=== PATIENT | female | born 1930 | race Caucasian/White ===

== ENCOUNTER 2017-07-25 10:27 | Observation (INO) | payer OTHER ==
[~2017-07-25] VITALS: Ht 167.6 cm; Wt 71.4 kg
[~2017-07-25 10:27] MED LIST: CLOP1TAB15 PO; LISI-729 PO; METF-384 PO; METO25TA3 PO; MULT-190 PO; SITA100T3 PO
[2017-07-25 16:27] VITALS: BP 164/73; PULSE 86; TEMP 36.8; O2SAT 94
[2017-07-25] MEDS ORDERED: MAGNESIUM HYDROXIDE SUSP 30 ML UDC PO PRN (17:15)
[2017-07-25] MEDS ORDERED: ALUMINUM/MAGNESIUM/SIMETH (MAALOX MAX) 30 ML UDC PO PRN (17:15)
[2017-07-25] MEDS ORDERED: ACETAMINOPHEN 325 MG TAB PO PRN (17:15)
[2017-07-25] MEDS ORDERED: ONDANSETRON INJ 2 MG/ML 2 ML VIAL IV PRN (17:15)
[2017-07-25] MEDS ORDERED: POLYETHYLENE (MIRALAX) 17 GM PACK PO PRN (17:15)
--- NOTE | 2017-07-25 17:18 | History and Physical ---
History & Physical Date & Time of Service: Jul 25, 2017 at 17:18 Chief Complaint: Syncope With Collapse Primary Care Physician: Marshall Mauricio M.D. History of Present Illness Source: patient, family Ms. 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 HPI obtained from patient and family at bedside. Patient sustained a fall approx. 2 weeks ago where she fell backwards and broke her R humerus. She states she doesn't recall lightheadedness or dizziness prior to the fall, it "just happened". She states she had a full work-up then for syncope and no findings were found. After her stay there, her daughter states that she seemed rather deconditioned and was struggling to ambulate mostly because of pain in her R arm she was struggling to use a walker or an assistive device. Daughter states prior to this fx she was ambulating find and normally doesn't use assistive devices. She sustained another fall approx. one week ago and reports no injury and again the patient stated it "just happened" but denies precipitating factors. They report they did a work-up again for syncope without findings. She was discharged to [facility] to get rehab there. This appears to be an assisted living facility and she was just evaluated to have PT and OT services started but she has only been at [facility] x 1 week and this has not started. Family reports acute rehab or SNF was not discussed prior to D/C from [facility] for more consistent rehab. Patient states she was feeling her normal self today and she got up and her toe hit the end of a table and she fell on her R side and was found by her bed. Patient reports she did not pass out or feel lightheaded or dizzy. States she is not familiar with her room since she has only been there x 1 week and is blind. She was taken to [facility] and per nursing signout from [facility] to nursing staff here (as no records Hospital records sent other than images). "She has been worked up for syncope x 2 without findings". They requested transfer and she sat in the ED in [facility] x approx. 7 hours. Family is not sure what all work-up they did but states a director client did see her when she was there one day. For the humerus fx the plan is conservative management with sling and PT/OT services. Per nursing report, [facility] states she had orthostasis with systolic BP of 140 supine which dropped to 100 systolically when sitting but did not see this in records as only labs and images sent. Incidentally, family reports they noticed vaginal bleeding x 2 days. Patient denies FMHx of gynecological Eloy and has her ovaries, uterus, and cervix. Did discuss differential and she states that if it would be cancer she would not pursue aggressive measures. She does report irritation from briefs and on visualization there is no blood but mildly erythematous labia. Nursing staff here noticed scant blood on brief. Imaging and labs from [facility] reviewed: CT Lumbar and Cervical without acute findings; CT Head no acute findings with stable chronic and post-operative findings per previous report? (will need to ask about this). With CT chest showing 22 mm mass-like opacity in LLL with recommendations for repeat imaging. CT showing a stable comminuted fx of R proximal humerus without change from initial image. Labs reveal WBC 6.5, Hgb/Hct 9.8/29.7, and platelets 451. Electrolytes WNL but BUN/Cr 34/1.6 with anion gap 14. Troponin negative. TSH 1.04. BNP 19. UA with 3+ leuks and 2+ blood with many bacteria. Again without records do not know what was given during her 7 hours in the ED at [facility] and family isn't sure. Past Medical/Surgical History 1. T2DM (managed off medications) 2. TIA (2011) 3. L Carotid Stenosis S/P Endarterectomy 4. Blindness x 6 months 2/2 Macular Degeneration 5. Recent R Humerus Fx Family History Patient reports no known family medical history. Social History Smoking Status: Never Smoker Smokeless Tobacco Use: No Alcohol Use: none Drug Use: none Housing status: assisted living Allergies Coded Allergies: No Known Allergies (Unverified , 12/16/14) Home Medications Scheduled Ciprofloxacin (Ciprofloxacin HCl), 500 MG PO BID Citalopram Hydrobromide (Citalopram Hydrobromide), 1 TAB PO DAILY Clopidogrel (Plavix), 75 MG PO QAM Docusate Sodium (Dok), 100 MG PO BID Docusate Sodium (Dok), 100 MG PO HS Dorzolamide Hcl-Timolol Maleat (Cosopt Oph), 1 DROPS OPL DAILY Ferrous Sulfate (Ferrous Sulfate), 325 MG PO BID Levetiracetam (Keppra), 500 MG PO DAILY Lisinopril (Zestril), 5 MG PO QAM Magnesium Oxide (Magnesium-Oxide), 400 MG PO DAILY Metoprolol Succinate (Toprol Xl), 25 MG PO QAM Multiple Vitamins W/ Minerals (I-Bakari Protect), 2 TABS PO DAILY Ocuvite Preservision (Ocuvite Preservision), 1 TAB PO BID Simvastatin (Zocor), 1 TAB PO HS Timolol Maleate (Ophth) (Timoptic), 1 DROPS OP DAILY Travoprost (Travatan Z), 1 DROPS OP DAILY Scheduled PRN Ondansetron (Ondansetron HCl), 1 TAB PO Q6H PRN for Nausea Tramadol HCl (Tramadol HCl), 100 MG PO Q6H PRN for Pain Miscellaneous Medications Famotidine (Pepcid), 20 MG PO Review of Systems General/Constitutional: Denies fever/chills, fatigue ENT: + blindness x 6 months; Denies nasal drainage, hearing loss, sore throat, trouble swallowing Cardiovascular: Denies chest pain, palpitations, edema Respiratory: Denies cough, sputum, SOB, wheezing, orthopnea GI: Denies nausea, vomiting, abdominal pain, constipation, diarrhea, melena/ hematochezia /Gyne: + Vaginal irritation + vaginal bleeding - reported; Denies dysuria Musculoskeletal: + R shoulder pain; Denies swelling Neurologic: Denies dizziness/lightheadedness, numbness/tingling Hematologic/Lymphatic: Denies bleeding/clotting abnormalities Skin: Denies rash Physical Exam Vital Signs Date Time Temp Pulse Resp B/P (MAP) Pulse Ox O2 Delivery O2 Flow Rate FiO2 07/25/17 16:27 36.8 86 18 164/73 (103) 94 Room Air General Appearance: WDWN in NAD who is A&O x 3 HEENT: Head is normocephalic/atraumatic; Mildly AKUTAN; Mucous membranes moist; Pharynx negative for exudate/lesions Neck: Supple; Trachea midline; Neg JVD Heart: RRR with no M/G/R Lungs: CTA in all lung bruce bilaterally; Respirations unlabored; Neg accessory muscle use Abdomen: Soft, non-tender, non-distended; Positive BS x 4 quadrants Extremities: Capillary refill < 2 seconds; Neg cyanosis or edema; limited ROM in RUE Neurological: Speech clear; Neg focal neurologic deficits Psychiatric: Appropriate mood/affect Skin: Normal Color; Warm/Dry Diagnostics Laboratory Results Results Past 24 Hours Test 07/25/17 17:12 Range/Units Impression Assessment and Plan Ms. 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 Mechanical Fall with Possible Previous Syncopal Falls? - [facility] reporting they have worked her up for syncope x 2 with no findings and direct admitted her - however patient continues to state this was mechanical in nature as she tripped, she is in a new unfamiliar environment x 1 week, she has a broken humerus, deconditioned from recent hospitalization, and is blind - Monitor on telemetry for rhythm monitoring and obtain troponin, CK, CMP - given fall and elevated Cr on [facility] labs - R/O element of rhabdo - Request records from [facility] for their workup - Reporting orthostatic BP in [facility] and will check them here - Obtain UA to R/O infection as contributing - She follows with a director client for her carotid stenosis but denies arrhythmia or heart history Orthostasis: - Check orthostatic here and hydrate with NSS at 80 mL/hr - unknown if she has any underlying CHF and will monitor for any signs of fluid overload - Hold Lisinopril and Toprol XL R Humerus Fx x 2 weeks: - Plan for conservative management with sling and PT/OT - Tramadol for pain - family states this medication does not seem to cause sedation and is tolerating it well Possible VIVI: - Unknown baseline but will hydrate and monitor 22 mm LLL Mass: - Given size suggestive of CA - will consult Pulm for recommendations and input - do not suspect patient will pursue aggressive treatment but family expressed concern for this T2DM (Managemed off Meds): - Continue to monitor and SSI if necessary Vaginal Bleeding? - External genitalia with mild erythema of labia but no visualization of blood at the introitus - will continue Plavix at this time - Discussed differential and patient states if this is worst case scenario she would not want aggressive treatment - denies FHMx of Gyne Eloy - still has Uterus and Cervix - Desenex powder Seizure Disorder: STABLE - Keppra 500 mg daily - CT Head with post-operative changes? Will need to ask about this Carotid Stenosis S/P L Endarerectomy: - Plavix 75 mg daily - Family reports she follows with cardiology for this and she has had unremarkable dopplers since procedure Code Status: DO NOT RESUSCITATE Disposition: - PT/OT evaluations - should consider SNF as family reports rehab wasn't discussed and she went to [facility] to get intermittent PT but hasn't started Resident Physician Supervision Note: I was present with MARIBEL Simeon during the history and exam. I discussed the case with the PA and agree with the findings and plan as documented in the note. Any exceptions or clarifications are listed here: 87 y/o F Hx DM II, TIA, seizures, visually impaired - recent frequent falls due to blindness. Pt presents due to frequent falls as a direct transfer. We were told by [facility] that she was having syncopal episodes, however, she denies this as does family. She has a new lung mass that has not been worked up and may be having some vaginal bleeding. OE AAO x 2 S1,2 R CTAB NT, ND No CCE No motor deficits P: The pt may not want an extensive workup reg her lung mass and bleeding We would focus then on her falls and allow for outpt f/u PT/OT consulted - may need improved rehab from what is available to her We will continue her medications as scheduled There is a question of impaired renal function - we do not know her baseline creatinine - IVF will be provided overnight and we will recheck a BMP AM Above discussed with family at time of admission Documented By: Boy Shine Level of Care Telemetry Resuscitation Status DO NOT RESUSCITATE VTE Prophylaxis VTE Risk Assessment Done? Y/N: Yes Risk Level: Moderate Given or contraindicated: SCD's
[2017-07-25] MEDS ORDERED: GLUCAGON FOR INJ 1 MG VIAL SQ PRN (17:30)
[2017-07-25] MEDS ORDERED: GLUCOSE 10 TABS/TUBE PO PRN (17:30)
[2017-07-25] MEDS ORDERED: DEXTROSE 50% 50 ML SYR IV PRN (17:30)
[2017-07-25] MEDS ORDERED: GLUCOSE 40% GEL 15 GM TUBE PO PRN (17:30)
[2017-07-25] MEDS ORDERED: LEVE500T13 PO (17:35)
[2017-07-25] MEDS ORDERED: DORZ1SOL6 OPL (17:35)
[2017-07-25] MEDS ORDERED: ULT50X PO (17:35)
[2017-07-25] MEDS ORDERED: DOCU100T PO ×2 (17:35)
[2017-07-25] MEDS ORDERED: TIMO0.5S35 OP (17:35)
[2017-07-25] MEDS ORDERED: ONDA4TAB9 PO (17:35)
[2017-07-25] MEDS ORDERED: MULTTAB PO (17:35)
[2017-07-25] MEDS ORDERED: FAMO20TA11 PO (17:35)
[2017-07-25] MEDS ORDERED: CITA10TA4 PO (17:35)
[2017-07-25] MEDS ORDERED: MGNO400 PO (17:35)
[2017-07-25] MEDS ORDERED: TRAV0.00 OP (17:35)
[2017-07-25] MEDS ORDERED: SIMV20TA2 PO (17:35)
[2017-07-25] MEDS ORDERED: FRRS300 PO (17:35)
[2017-07-25] MEDS ORDERED: TRAMADOL HCL 50 MG TAB PO PRN ×2 (17:45)
[2017-07-25 17:51] VITALS: BP 164/83; PULSE 84; TEMP 36.7; O2SAT 98; Ht 167.6 cm; Wt 71.4 kg
[2017-07-25] MEDS: SODIUM CHLORIDE 0.9% 1000ML 1,000 ML IV SCH (18:09)
[2017-07-25 18:13] LABS: ALKALINE PHOSPHATASE 149 U/L (45-117); ALT/SGPT 16 U/L (12-78); AST/SGOT 13 U/L (15-37); BLOOD UREA NITROGEN 27 mg/dl (7-18); CALCIUM 8.6 mg/dl (8.5-10.1); CARBON DIOXIDE 27 mmol/L (21-32); CREATININE 1.27 mg/dl (0.60-1.20); GLUCOSE 122 mg/dl (70-99); POTASSIUM 3.9 mmol/L (3.5-5.1); SODIUM 135 mmol/L (136-145); TOTAL PROTEIN 7.3 gm/dl (6.4-8.2)
[2017-07-25 19:15] VITALS: BP 136/68; PULSE 87; TEMP 37.1; O2SAT 96
[2017-07-25] MEDS: MICONAZOLE NITRATE POWDER 43 GM EXT SCH (20:19)
[2017-07-25] MEDS: FERROUS SULFATE 325 MG TAB PO SCH (20:20)
[2017-07-25] MEDS: INSULIN ASPART 100 UNITS/ML 3 ML PEN SC SCH (20:27)
[2017-07-25] MEDS ORDERED: IV FLUIDS COMPLETED PRN (21:00)
[2017-07-25] MEDS ORDERED: SIMVASTATIN 20 MG TAB PO SCH (21:00)
[2017-07-25 23:24] VITALS: BP 167/56; PULSE 78; TEMP 36.7; O2SAT 97
[2017-07-26 00:20] LABS: CREATININE RANDOM URINE 87.9 mg/dl
[2017-07-26 03:13] VITALS: BP 171/66; PULSE 86; TEMP 36.8; O2SAT 97
[2017-07-26] MEDS: SODIUM CHLORIDE 0.9% 1000ML 1,000 ML IV SCH (06:01)
[2017-07-26 06:43] LABS: HEMATOCRIT 27.8 % (37-47); HEMOGLOBIN 9.1 g/dL (12.0-16.0); MEAN CELL VOLUME 99.3 fL (80-100); MEAN CORPUSCULAR HEMOGLOBIN 32.5 pg (25-34); MEAN CORPUSCULAR HGB CONC 32.7 g/dl (32-36); PLATELET COUNT 361 K/uL (130-400); RED CELL DISTRIBUTION WIDTH SD 49.9 fL (36.4-46.3); WHITE BLOOD COUNT 5.43 K/uL (4.8-10.8)
[2017-07-26] MEDS: INSULIN ASPART 100 UNITS/ML 3 ML PEN SC SCH ×2 (07:00→11:00)
[2017-07-26 07:18] LABS: CALCIUM 8.3 mg/dl (8.5-10.1); CREATININE 1.18 mg/dl (0.60-1.20); POTASSIUM 3.8 mmol/L (3.5-5.1)
[2017-07-26 07:52] VITALS: BP 134/67; PULSE 88; TEMP 37.1; O2SAT 97
--- NOTE | 2017-07-26 08:45 | Hospitalist Progress Note ---
Hospitalist Progress Note Date of Service Jul 26, 2017. Objective Vital Signs Date Time Temp Pulse Resp B/P (MAP) Pulse Ox O2 Delivery O2 Flow Rate FiO2 07/26/17 07:52 37.1 88 19 134/67 (89) 97 07/26/17 04:05 Room Air 07/26/17 03:13 36.8 86 16 171/66 (101) 97 Room Air 07/25/17 23:30 Room Air 07/25/17 23:24 36.7 78 17 167/56 (93) 97 Room Air 07/25/17 20:19 Room Air 07/25/17 19:15 37.1 87 20 136/68 (90) 96 Room Air 07/25/17 17:51 36.7 84 18 164/83 98 Room Air 07/25/17 16:27 36.8 86 18 164/73 (103) 94 Room Air Laboratory Results Last 24 Hours Test 07/25/17 17:38 07/25/17 20:26 07/25/17 23:25 07/26/17 05:57 Sodium Level 135 mmol/L 136 mmol/L Potassium Level 3.9 mmol/L 3.8 mmol/L Chloride Level 102 mmol/L 104 mmol/L Carbon Dioxide Level 27 mmol/L 27 mmol/L Anion Gap 6.0 mmol/L 5.0 mmol/L Blood Urea Nitrogen 27 mg/dl 21 mg/dl Creatinine 1.27 mg/dl 1.18 mg/dl Estimated GFR () 43.6 47.7 Estimated GFR (Non- 37.6 41.1 BUN/Creatinine Ratio 21.6 17.6 Random Glucose 122 mg/dl 111 mg/dl Calcium Level 8.6 mg/dl 8.3 mg/dl Total Bilirubin 0.6 mg/dl Aspartate Amino Transf (AST/SGOT) 13 U/L Alanine Aminotransferase (ALT/SGPT) 16 U/L Alkaline Phosphatase 149 U/L Total Creatine Kinase 35 U/L Troponin I < 0.015 ng/ml Total Protein 7.3 gm/dl Albumin 3.0 gm/dl Globulin 4.3 gm/dl Albumin/Globulin Ratio 0.7 Bedside Glucose 172 mg/dl Urine Color YELLOW Urine Appearance CLOUDY Urine pH 6.0 Urine Specific [place] 1.013 Urine Protein NEG Urine Glucose (UA) NEG Urine Ketones NEG Urine Occult Blood TRACE Urine Nitrite NEG Urine Bilirubin NEG Urine Urobilinogen NEG Urine Leukocyte Esterase LARGE Urine WBC (Auto) >30 /hpf Urine RBC (Auto) 0-4 /hpf Urine Hyaline Casts (Auto) 0 /lpf Urine Epithelial Cells (Auto) 5-10 /lpf Urine Bacteria (Auto) NEG Urine Random Creatinine 87.9 mg/dl Urine Random Sodium 64 mEq/L White Blood Count 5.43 K/uL Red Blood Count 2.80 M/uL Hemoglobin 9.1 g/dL Hematocrit 27.8 % Mean Corpuscular Volume 99.3 fL Mean Corpuscular Hemoglobin 32.5 pg Mean Corpuscular Hemoglobin Concent 32.7 g/dl RDW Standard Deviation 49.9 fL RDW Coefficient of Variation 14.0 % Platelet Count 361 K/uL Mean Platelet Volume 9.0 fL Est Creatinine Clear Calc Drug Dose 33.4 ml/min Magnesium Level 2.0 mg/dl Test 07/26/17 06:39 Bedside Glucose 119 mg/dl Assessment and Plan Ms. 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 Direct admission from [facility]. Mechanical Fall with Possible Previous Syncopal Falls? Orthostasis - Syncopal workup completed including echo, holter monitor, ekgs, labs at [facility] x 2 with no findings - patient thinks this was mechanical d/t unfamiliar environment x 1 week, broken humerus, deconditioned from recent hospitalization, legal blindness - Trop neg x 1, check CK with recent fall. - She follows with a technical instructor course developer for her carotid stenosis but denies arrhythmia or heart history - Cr is improving today. - Follow orthostatic BPs - Check orthostatic here and hydrate with NSS at 80 mL/hr - unknown if she has any underlying CHF and will monitor for any signs of fluid overload - Hold Lisinopril and Toprol XL Urinary Tract infection - UA is dirty with + large esterase and >30 WBC, will await Cx. Start on cipro 500 mg bid. R Humerus Fx x 2 weeks: - Plan for conservative management with sling and PT/OT - Tramadol for pain Likely VIVI: - Cr. improved with gentle hydration overnight. 22 mm LLL Mass: - Given size suggestive of CA - will consult Pulm for recommendations and input - do not suspect patient will pursue aggressive treatment but family expressed concern for this T2DM (Manage med off Meds): - Continue to monitor and SSI if necessary Vaginal Bleeding? - External genitalia with mild erythema of labia but no visualization of blood at the introitus - will continue Plavix at this time - Discussed differential and patient states if this is worst case scenario she would not want aggressive treatment - denies FHMx of Gyne Eloy - still has Uterus and Cervix - Desenex powder Seizure Disorder: STABLE - Keppra 500 mg daily - CT Head with post-operative changes? Carotid Stenosis S/P L Endarterectomy: - Plavix 75 mg daily - Family reports she follows with cardiology for this and she has had unremarkable dopplers since procedure Code Status: DO NOT RESUSCITATE Disposition: - PT/OT evaluations - ? SNF as family reports rehab wasn't discussed and she went to [facility] to get intermittent PT but hasn't started
[2017-07-26] MEDS ORDERED: MAGNESIUM OXIDE 400 MG TAB PO SCH (09:00)
[2017-07-26] MEDS ORDERED: TIMOLOL MALEATE 0.5% OP SOLN 5 ML BTL OP SCH (09:00)
[2017-07-26] MEDS ORDERED: DORZOLAMIDE/TIMOLOL 22.3/6.8MG/ML 10 ML BTL OPL SCH (09:00)
[2017-07-26] MEDS ORDERED: CIPROFLOXACIN 500 MG TAB PO SCH (09:00)
[2017-07-26] MEDS ORDERED: FAMOTIDINE 20 MG TAB PO SCH (09:00)
[2017-07-26] MEDS ORDERED: TRAVOPROST Z 0.004% OPH SOLN 2.5 ML BTL OP SCH ×2 (09:00→21:00)
[2017-07-26] MEDS ORDERED: CEROVITE ADV FORMULA TAB PO SCH (09:00)
[2017-07-26] MEDS ORDERED: LEVETIRACETAM 500 MG TAB PO SCH (09:00)
[2017-07-26] MEDS ORDERED: CLOPIDOGREL BISULFATE 75 MG TAB PO SCH (09:00)
[2017-07-26] MEDS: MICONAZOLE NITRATE POWDER 43 GM EXT SCH (09:40)
[2017-07-26] MEDS: FERROUS SULFATE 325 MG TAB PO SCH (09:42)
[2017-07-26] MEDS ORDERED: CPR500 PO (09:52)
--- NOTE | 2017-07-26 09:59 | Discharge Instructions ---
Discharge Instructions Date of Service Jul 26, 2017. Admission Reason for Admission: Syncope With Collapse Discharge Discharge Diagnosis / Problem: Mechanical Fall Discharge Goals Goal(s): Decrease discomfort, Improve function, Increase independence, Improve disease control Activity Recommendations Activity Limitations: resume your previous activity Lifting Limitations: no more than 25 pounds, gradually increase as tolerated Exercise/Sports Limitations: gradually increase as tolerated Shower/Bathe: no limitations (with assistance) Driving or Machine Use: Do Not Drive . Instructions / Follow-Up Instructions / Follow-Up You were admitted to [facility] with s/p fall which was likely mechanical. You were evaluated for syncope however initial workup was negative. During your stay here you were treated with supportive care. Continue to work up with physical and occupational therapy upon return. Medications: You have been started on an antibiotic, Cipro 500 mg twice daily for urinary tract infection. Your PCP should follow up with culture results within 2 days for sensitivities. Continue taking your medications as above. Appointments: Follow up with your Primary Care Provider within 1 week. You will need to follow up with Dr. Eduardo, your beader tender upon return to [facility], [place] within 1 week. Current Hospital Diet Patient's current hospital diet: Diabetes Type 2 Diet Discharge Diet Recommended Diet: Diabetes Type 2 Diet Pending Studies Studies pending at discharge: no Medical Emergencies . Who to Call and When: Medical Emergencies: If at any time you feel your situation is an emergency, please call 911 immediately. . Non-Emergent Contact Non-Emergency issues call your: Primary Care Provider Call Non-Emergent contact if: temperature is above 100.5, your pain is not controlled, your pain is worsening, your pain is unusual for you, your pain is concerning you, you have any medication questions other concerns with your health. Call 911 or go directly to the Emergency Department if you experience any of the following: Chest pain, chest tightness, shortness of breath, abdominal pain , lightheadedness, dizziness, gastrointestinal bleeding, or have any other concerns regarding your health. . Past History Medical & Surgical History: (1) Fall . "Provider Documentation" section prepared by Leidy Head. . VTE Core Measure Inpt VTE Proph given/why not?: SCD's
[2017-07-26] MEDS ORDERED: NURSING VERBAL MED ORDER ONE (10:00)
[2017-07-26 10:04] VITALS: BP 134/67; PULSE 88; TEMP 37.1; O2SAT 97
--- NOTE | 2017-07-26 13:21 | Discharge Summary ---
Discharge Summary Date of Service Jul 26, 2017. 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 Continued Medications: Citalopram Hydrobromide (Citalopram Hydrobromide) 10 Mg Tab 1 TAB PO DAILY, TAB Clopidogrel (Plavix) 75 Mg Tab 75 MG PO QAM, TAB Docusate Sodium (Dok) 100 Mg Tab 100 MG PO BID Docusate Sodium (Dok) 100 Mg Tab 100 MG PO HS Dorzolamide Hcl-Timolol Maleat (Cosopt Oph) 1 Zofia Zofia 1 DROPS OPL DAILY, #10 ML 6 Refills Famotidine (Pepcid) 20 Mg Tab 20 MG PO, TAB Ferrous Sulfate (Ferrous Sulfate) 325 Mg Tab 325 MG PO BID Levetiracetam (Keppra) 500 Mg Tab 500 MG PO DAILY, TAB Lisinopril (Zestril) 5 Mg Tab 5 MG PO QAM, TAB Magnesium Oxide (Magnesium-Oxide) 400 Mg Tab 400 MG PO DAILY Metoprolol Succinate (Toprol Xl) 25 Mg Tabcr 25 MG PO QAM, #30 TAB Multiple Vitamins W/ Minerals (I-Bakari Protect) 1 Tab Tab 2 TABS PO DAILY Ocuvite Preservision (Ocuvite Preservision) 1 Tab Tab 1 TAB PO BID, TAB Ondansetron (Ondansetron HCl) 4 Mg Tab 1 TAB PO Q6H PRN for Nausea Simvastatin (Zocor) 20 Mg Tab 1 TAB PO HS for 90 Days, TAB 1 Refill Timolol Maleate (Ophth) (Timoptic) 0.5 % Zofia 1 DROPS OP DAILY for 60 Days, #10 ML 3 Refills Tramadol HCl (Tramadol HCl) 50 Mg Tab 100 MG PO Q6H PRN for Pain Travoprost (Travatan Z) 0.004 % Gene 1 DROPS OP DAILY, #2.5 ML 2 Refills Discharge Exam The patient was seen and examined this morning. Pt reports doing well today, she has no acute complaints. Her daughter is present at bedside in the second half of my interview. Ultimately neither the patient or her daughter wanted her to be transferred, and they are unsure whey she is here for further syncopal workup as she follows with her outpatient Customer Resource Specialist Dr. Eduardo. She has been evaluated by PT/OT and completed one session so far at [facility], and wants to return as soon as possible. Pt is refusing snf or acute rehab placement. ROS: Constitutional: No fever, sweats or chills Eyes: No diplopia, no worsening or blurred vision ENT: normal hearing, no trouble swallowing Respiratory: No cough, sputum, dyspnea at rest or on exertion Cardiovascular: No chest pain, tightness or palpitations Abdomen: No pain, nausea, vomiting, diarrhea or constipation Musculoskeletal: No joint pain, calf pain, swelling Neurologic: No weakness, numbness/tingling, or balance problems Psychiatric: No anxiety or depression Skin: No rash or itch PE: General: awake, alert, no apparent distress, + keeps eyes closed during exam Head: Normocephalic, atraumatic ENT: + Macular degeneration bilaterally, no pharyngeal exudate, mucous membranes moist Chest: Clear to auscultation, on room air, no adventitious breath sounds Cardiac: NSR no MRGs, no JVD, normal peripheral pulses, good capillary refill Abdominal: NABS x 4 quadrants, soft, nontender to palpation, no rebound, guarding or tenderness Extremities: Normal inspection, no peripheral edema or erythema, calfs nontender to palpation Psych: Normal mood and affect Neuro: AAO x 3, no motor deficits, speech is clear, no peripheral sensory deficits Hospital Course Ms. 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 Direct admission from [facility]. Mechanical Fall with Possible Previous Syncopal Falls? Orthostasis - Syncopal workup completed including echo, holter monitor, ekgs, labs at [facility] x 2 with no findings - patient thinks this was mechanical d/t unfamiliar environment x 1 week, broken humerus, deconditioned from recent hospitalization, legal blindness - Trop neg x 1, check CK with recent fall. - She follows with a fiberglass laminator for her carotid stenosis but denies arrhythmia or heart history - Cr is improving today. - Orthostatic blood pressures have been negative. No overnight events on telemetry. - Pt received NSS at 80 mL/hr - unknown if she has any underlying CHF and will monitor for any signs of fluid overload - Hold Lisinopril and Toprol XL -can resume upon discharge Urinary Tract infection - UA is dirty with + large esterase and >30 WBC, will await Cx. Start on cipro 500 mg bid. Patient can have PCP follow-up culture sensitivity and adjust antibiotics as needed. R Humerus Fx x 2 weeks: - Plan for conservative management with sling and PT/OT -she currently is not in a sling - Tramadol for pain Likely VIVI: - Cr. improved with gentle hydration overnight. 22 mm LLL Mass: - Given size suggestive of CA - Pt denies need for further workup during this hospital stay. - Do not suspect patient will pursue aggressive treatment but family expressed concern for this - can have PCP follow-up upon discharge. T2DM (Manage med off Meds): - Continue to monitor and SSI if necessary Vaginal Bleeding? - Resolved at this time - External genitalia with mild erythema of labia but no visualization of blood at the introitus at time of discharge. Resolved. Continue Plavix at this time - Discussed differential and patient states if this is worst case scenario she would not want aggressive treatment - denies FHMx of Work [employer] - still has Uterus and Cervix - Desenex powder during admission Seizure Disorder: STABLE - Keppra 500 mg daily - CT Head with post-operative changes Carotid Stenosis S/P L Endarterectomy: - Plavix 75 mg daily - Family reports she follows with cardiology for this and she has had unremarkable dopplers since procedure Code Status: DO NOT RESUSCITATE Disposition: -patient and family refusal of further inpatient workup. They request to be discharged back to [facility], and will follow with PT/OT as an outpatient there. Discharge to personal senior care, [facility] today. Total Time Spent: Greater than 30 minutes This includes examination of the patient, discharge planning, medication reconciliation, and communication with other providers. Discharge Instructions Please refer to the electronic Patient Visit Report (Discharge Instructions) for additional information. Follow-Up Follow up with your Primary Care Provider within 1 week. Follow-up with cardiology within 1-2 weeks on an as-needed basis. Follow-up urine culture sensitivities within 2 days by PCP. Additional Copies To Marshall Mauricio M.D.
--- NOTE | 2017-07-26 15:00 | ECHOCARDIOGRAM REPORT ---
*NOTICE TO RECEIVING [employer] This information is strictly Confidential and protected under [place] law. [place] law prohibits you from making any further disclosure of this information unless further disclosure is expressly permitted by the written consent of the person to whom it pertains or is authorized by law. A general authorization for the release of medical or other information is not sufficient for this purpose. Hospital accepts no responsibility if the information is made available to any other person, INCLUDING THE PATIENT. Interpretation Summary * Name: ALONSO ZIMMERMAN Study Date: 07/26/2017 06:49 AM BP: 171/66 mmHg * Patient Location: C.2E\S\E203\S\1 HR: 86 * : 1930 (M/d/yyyy) Gender: Female Height: 66 in * Age: 87 yrs Ethnicity: CA Weight: 157 lb * Ordering Physician: Lelia Simeon * Referring Physician: UNKNOWN * Performed By: Michelle Hardy RCS * * Reason For Study: Syncope * BSA: 1.8 m2 * -- Conclusions -- * 1. Normal left ventricular size and systolic function. EF 60-65%. No regional wall motion abnormalities. No left ventricular hypertrophy. Type 1 diastolic dysfunction. * 2. Mild aortic stenosis with mild regurgitation. * 3. Normal estimated right ventricular systolic pressure. * 4. No prior study available for comparison. Procedure Details * A complete two-dimensional transthoracic echocardiogram was performed (2D, M-mode, Doppler and color flow Doppler). Left Ventricle * Normal left ventricular size and systolic function. EF 60-65%. No regional wall motion abnormalities. No left ventricular hypertrophy. Type 1 diastolic dysfunction. Right Ventricle * The right ventricle is normal in size and function. * The right ventricular systolic function is normal as assessed by tricuspid annular plane systolic excursion (TAPSE) (normal >1.5 cm). Atria * The left atrial size is normal. * Right atrial size is normal. * There is no evidence of atrial septal defect, but resolution does not allow assessment for a patent foramen ovale. Mitral Valve * The mitral valve is grossly normal. * There is no mitral valve stenosis. * Significant mitral regurgitation is absent. Tricuspid Valve * The tricuspid valve is not well visualized, but is grossly normal. * There is no tricuspid stenosis. * There is trace tricuspid regurgitation. Aortic Valve * Mild aortic stenosis with mild regurgitation. Pulmonic Valve * The pulmonary valve is inadequately visualized, but the Doppler data is adequate for interpretation. * There is no pulmonic valvular stenosis. * Trace pulmonic valvular regurgitation. Great Vessels * The aortic root is normal size. * Ascending aorta of normal dimension Pericardium/Pleural * Trace pericardial effusion. Anterior fat pad noted. Great Vessels * Normal inferior vena cava size and collapsability with sniff indicates a normal right atrial pressure of 3 mmHg MMode 2D Measurements and Calculations IVSd 0.96 cm IVSs 1.2 cm LVIDd 4.1 cm LVIDs 2.6 cm LVPWd 0.96 cm LVPWs 1.2 cm IVS/LVPW 0.99 FS 34.9 % EDV(Teich) 72.5 ml ESV(Teich) 25.6 ml EF(Teich) 64.7 % EDV(cubed) 66.9 ml ESV(cubed) 18.4 ml EF(cubed) 72.5 % % IVS thick 28.8 % % LVPW thick 29.1 % LV mass(C)d 122.9 grams LV mass(C)dI 68.1 grams/m\S\2 LV mass(C)s 96.8 grams LV mass(C)sI 53.6 grams/m\S\2 CO(Teich) 3.6 l/min CI(Teich) 2.0 l/min/m\S\2 SV(Teich) 46.9 ml SI(Teich) 26.0 ml/m\S\2 CO(cubed) 3.7 l/min CI(cubed) 2.0 l/min/m\S\2 SV(cubed) 48.5 ml SI(cubed) 26.9 ml/m\S\2 Ao root diam 3.4 cm Ao root area 9.0 cm\S\2 LA dimension 4.0 cm asc Aorta Diam 2.7 cm LA/Ao 1.2 LVOT diam 2.1 cm LVOT area 3.5 cm\S\2 LVAd ap4 28.5 cm\S\2 LVLd ap4 7.9 cm EDV(MOD-sp4) 85.1 ml LVAs ap4 15.8 cm\S\2 LVLs ap4 6.3 cm ESV(MOD-sp4) 33.6 ml EF(MOD-sp4) 60.5 % LVAd ap2 28.0 cm\S\2 LVLd ap2 7.6 cm EDV(MOD-sp2) 86.2 ml LVAs ap2 15.2 cm\S\2 LVLs ap2 6.2 cm ESV(MOD-sp2) 31.0 ml EF(MOD-sp2) 64.0 % CO(MOD-sp4) 3.9 l/min CI(MOD-sp4) 2.2 l/min/m\S\2 SV(MOD-sp4) 51.5 ml SI(MOD-sp4) 28.5 ml/m\S\2 CO(MOD-sp2) 4.2 l/min CI(MOD-sp2) 2.3 l/min/m\S\2 SV(MOD-sp2) 55.2 ml SI(MOD-sp2) 30.6 ml/m\S\2 Doppler Measurements and Calculations MV E max earnestine 70.5 cm/sec MV A max earnestine 113.6 cm/sec MV E/A 0.62 MV P1/2t max earnestine 111.7 cm/sec MV P1/2t 77.4 msec MVA(P1/2t) 2.8 cm\S\2 MV dec slope 422.7 cm/sec\S\2 MV dec time 0.25 sec Ao V2 max 219.3 cm/sec Ao max PG 19.2 mmHg Ao max PG (full) 15.4 mmHg Ao V2 mean 146.3 cm/sec Ao mean PG 9.6 mmHg Ao mean PG (full) 7.6 mmHg Ao V2 VTI 43.3 cm TONNY(I,A) 1.6 cm\S\2 TONNY(I,D) 1.6 cm\S\2 TONNY(V,A) 1.5 cm\S\2 TONNY(V,D) 1.5 cm\S\2 AI max earnestine 395.7 cm/sec AI max PG 62.8 mmHg AI dec slope 295.2 cm/sec\S\2 AI P1/2t 392.6 msec LV V1 max PG 3.9 mmHg LV V1 mean PG 1.9 mmHg LV V1 max 98.2 cm/sec LV V1 mean 65.8 cm/sec LV V1 VTI 20.2 cm SV(Ao) 387.8 ml SI(Ao) 214.9 ml/m\S\2 SV(LVOT) 69.6 ml SI(LVOT) 38.6 ml/m\S\2 PA V2 max 135.2 cm/sec PA max PG 7.3 mmHg TR max earnestine 234.8 cm/sec RVSP(TR) 25.1 mmHg RAP systole 3.0 mmHg
== END 2017-07-26 12:26 | disposition home or self-care (01) ==
LOC: INTOOBSV 16:00 → C.2E 16:00
PROVIDERS: ADMIT Internal Medicine; ATTEND Internal Medicine
DX: R29.6 Repeated falls (principal); E11.9 Type 2 diabetes mellitus without complications; Z86.73 Personal history of transient ischemic attack (TIA), and cerebral infarction without residual deficits; I65.29 Occlusion and stenosis of unspecified carotid artery; H54.8 Legal blindness, as defined in USA; H35.30 Unspecified macular degeneration; S42.301A Unspecified fracture of shaft of humerus, right arm, initial encounter for closed fracture; W19.XXXA Unspecified fall, initial encounter; Z98.890 Other specified postprocedural states; R91.1 Solitary pulmonary nodule; N39.0 Urinary tract infection, site not specified; Z79.02 Long term (current) use of antithrombotics/antiplatelets; Z79.899 Other long term (current) drug therapy